=== PATIENT | male | born 1995 | race Caucasian/White ===

== ENCOUNTER 2018-01-29 14:31 | Emergency (ER) | payer OTHER ==
[2018-01-29] MEDS ORDERED: NS 1,000 ML IV ONE (15:31)
[2018-01-29] MEDS ORDERED: ONDANSETRON 4 MG/2 ML VIAL IVP ONE (15:31)
--- NOTE | 2018-01-29 15:33 | EDPHY ---
HPI/HX/ROS/PE/MDM Narrative: CHIEF COMPLAINT: RLQ abdominal pain HISTORY OF PRESENT ILLNESS: The patient is a 22 y/o male complaining of RLQ abdominal pain for the last four days. Pain began gradually while at work and then became much worse after lifting something heavy. He describes the pain as "pins and pokes and squeezing and bulging" at different times. The pain "moved around a bit" and was occasionally in his groin, but never in his testicles. It radiates around to his lower back. He's had a few waves of intense nausea and vomited once. He also had diarrhea today. He reports good appetite until today, when it vanished completely. While he was still eating, food did not aggravate symptoms. He says the pain is "uncomfortable, not insufferable" and he has not taken anything to treat it at home. He is generally healthy and denies prior abdominal surgeries, STIs, or new sexual partners. He does mention a couple times per year for several years he's felt a transient "poking and mild burning " sensation in his RLQ when lying down. Last PO intake yesterday. No fever, rash, chills, chest pain, shortness of breath, palpitations, constipation, urinary complaints, headache, lightheadedness, penile discharge, testicular swelling. REVIEW OF SYSTEMS: Aside from elements discussed in the HPI, a comprehensive 10-point review of systems was reviewed and is negative. PAST MEDICAL HISTORY: No abdominal surgeries SOCIAL HISTORY: "Moderate" cigarette smoker. Occasional alcohol use. Rare marijuana use. VITAL SIGNS: Reviewed by me GENERAL: Well-developed, well-nourished, resting comfortably in no respiratory distress. HEENT: Atraumatic. Eyes: No icterus, no injection. Mouth: moist mucous membranes. No erythema or lesions. Neck: supple with no adenopathy. LUNGS: Clear to auscultation bilaterally, no wheezes, rhonchi or rales. CARDIAC: Regular rate and rhythm, no rubs, murmurs or gallops. ABDOMEN: Soft, mild RLQ tenderness, tenderness with shotty adenopathy in the right inguinal canal, nondistended. : normal exam BACK: Mild right CVA tenderness. EXTREMITIES: No trauma. No edema. Range of motion is normal throughout. NEURO: Alert and oriented, grossly nonfocal. SKIN: Warm and dry, no rash. PSYCHIATRIC: Normal mentation, no agitation. Portions of this note were transcribed by a medical biller coder. I personally performed a history, physical exam, medical decision making, and confirmed accuracy of information the transcribed note. ED Course: This is a normally healthy 22 y/o male who presents with a 4-day history of vague abdominal pain primarily located in his RLQ with occasional radiation to his lower back and right groin. He has associated nausea, one episode of vomiting and diarrhea, and loss of appetite today. He has RLQ tenderness, right groin tenderness, right CVA tenderness, and shotty adenopathy in his right inguinal canal. He is afebrile. Presentation is most concerning for appendicitis vs kidney stone. Plan for IV, labs including UA, abdominal CT, and symptom management. 1L IV NS and 4mg IV Zofran ordered. He has declined pain medications at this time. CT shows shotty mesenteric lymph nodes that could indicate mesenteric adenitis. Normal appendix. Reassessed patient and discussed findings. Exam unchanged. Plan for 30mg IM Toradol and discharge with standard mesenteric adenitis care and follow up instructions. Return precautions discussed. He is comfortable with this plan. MDM: Diff dx considered included by not limited to appendicitis, constipation, testicular pathology, lymphadenopathy, mesenteric adenitis, UTI, kidney stone. - Data Points Imaging Results: Abdomen CT 01/29/18 16:10 Impression: Shotty nodes in the cecal mesentery raise the possibility of mesenteric adenitis. Otherwise negative. Results discussed with Dr. Galvan at 4:48 PM. General information for patients regarding this examination can be found at [email or web address]. If you have questions or comments about this report, please contact me at (hospital) or [phone] (cell). Imaging: Discussed imaging studies w/ director process Radiologist, I viewed and interpreted images myself Laboratory Results: Laboratory Results 01/29/18 15:47 01/29/18 15:47 Medications Given: Discontinued Medications Sodium Chloride (Ns) 1,000 mls @ 0 mls/hr IV EDNOW ONE; Wide Open PRN Reason: Protocol Stop: 01/29/18 15:32 Last Admin: 01/29/18 15:42 Dose: 1,000 mls Ketorolac Tromethamine (Toradol) 15 mg IVP EDNOW ONE Stop: 01/29/18 17:11 Last Admin: 01/29/18 17:22 Dose: 15 mg Ondansetron HCl (Zofran) 4 mg IVP EDNOW ONE Stop: 01/29/18 15:32 Last Admin: 01/29/18 15:42 Dose: 4 mg General Time Seen by Provider: 01/29/18 14:57 Initial Vital Signs: Initial Vital Signs Temperature (C) 37.0 C 01/29/18 14:34 Heart Rate 88 01/29/18 14:34 Respiratory Rate 18 01/29/18 14:34 Blood Pressure 139/79 H 01/29/18 14:34 O2 Sat (%) 98 01/29/18 14:34 O2 Delivery Mode Room Air Allergies/Adverse Reactions: No Known Allergies Allergy (Verified 01/29/18 14:33) Home Medications: Medication Instructions Recorded NK [No Known Home Meds] 01/29/18 Departure - Departure Disposition: Home, Routine, Self-Care Clinical Impression: Mesenteric adenitis Condition: Good Instructions: Mesenteric Adenitis (ED) Additional Instructions: 1. Take ibuprofen as directed on the packaging if needed for pain over the next few days. You received a similar mediation in the ED today (Toradol) and should not take a dose of ibuprofen until tomorrow morning. 2. Follow up with your primary care provider if needed for unimproved symptoms over the next few days. 3. Return to the ED for any worsening of condition. Referrals: NONE *PRIMARY CARE P,. [Primary Care Provider] - As per Instructions Bismark Giron MD [[facility] Primary Care Provider] - As per Instructions Report Scribed for: Jennifer Galvan Report Scribed by: Roula Gray Date of Report: 01/29/18 Time of Report: 14:59
[2018-01-29 15:52] LABS: PLATELET COUNT 254 10^3/uL (150-400)
[2018-01-29] MEDS ORDERED: IOPAMIDOL (ISOVUE-300) 100 ML BTL ONE (16:13)
[2018-01-29] MEDS ORDERED: KETOROLAC 15 MG/1 ML SDV IVP ONE (17:10)
[2018-01-29 17:29] VITALS: BP 120/80
== END 2018-01-29 17:27 | disposition home or self-care (01) ==
DX: I88.0 Nonspecific mesenteric lymphadenitis (principal)
CPT/HCPCS: 96374; J1885; J2405; Q9967